=== PATIENT | male | born 1985 | race African-American/Black ===

== ENCOUNTER 2018-10-19 15:42 | Emergency (ER) | payer OTHER ==
[~2018-10-19] VITALS: Ht 182.9 cm; Wt 99.8 kg
[2018-10-19 18:35] VITALS: BP 116/68
[2018-10-19] MEDS ORDERED: cefTRIAXone SOD 1,000 MG VL IM ONE (19:00)
[2018-10-19] MEDS ORDERED: TETANUS-DIPTH-ACEL PERTUSSIS 0.5ML SYRG IM ONE (19:00)
[2018-10-19] MEDS ORDERED: HYDROcodone-ACET 10/325MG TAB PO ONE (19:00)
[2018-10-19] MEDS ORDERED: LIDOCAINE W/ EPINEPHRINE 1% 20ML VIAL SC ONE (19:00)
[2018-10-19] MEDS ORDERED: LIDOCAINE W/ EPINEPHRINE 1 % INJ 30ML ONE (19:13)
== END 2018-10-19 20:10 | disposition home or self-care (01) ==
LOC: ER 15:42
DX: L02.416 Cutaneous abscess of left lower limb (principal)
CPT/HCPCS: 10060; 90471; 90715; 96372; 99283; C1887; J0696; J2001

== ENCOUNTER 2018-10-20 23:09 | Emergency (ER) | payer SELFPAY ==
[~2018-10-20] VITALS: Ht 182.9 cm; Wt 97.5 kg
[2018-10-20 23:26] VITALS: BP 126/68
[2018-10-20] MEDS ORDERED: cefTRIAXone SOD 1,000 MG VL IM ONE (23:45)
== END 2018-10-21 02:25 | disposition home or self-care (01) ==
LOC: ER 23:09
DX: L02.416 Cutaneous abscess of left lower limb (principal)
CPT/HCPCS: 96372